=== PATIENT | female | born 2005 | race Caucasian/White ===

== ENCOUNTER → 2023-11-02 15:01 | Outpatient (REF) | payer OTHER, SELFPAY | LOC: HWRAD 15:01 | PROVIDERS: ATTENDING PHYSICIAN Internal Medicine Endocrinology, Diabetes & Metabolism; FAMILY PHYSICIAN Pediatrics | DX: E06.3 Autoimmune thyroiditis (principal) | CPT/HCPCS: 76536 ==

== ENCOUNTER 2024-09-27 06:27 | Day surgery (SDC) | payer OTHER, SELFPAY | END 2024-09-27 14:38 | disposition home or self-care (01) | LOC: GI 06:27 | PROVIDERS: ATTENDING PHYSICIAN Internal Medicine Gastroenterology | DX: K62.5 Hemorrhage of anus and rectum (principal); K60.2 Anal fissure, unspecified | CPT/HCPCS: 45378 ==